=== PATIENT | female | born 1950 | race Caucasian/White ===

== ENCOUNTER 2018-11-11 14:27 | Inpatient (IN) | payer OTHER ==
[~2018-11-11] VITALS: Ht 166.4 cm; Wt 72.2 kg
[2018-11-11 14:34] VITALS: BP_SYST 129
[2018-11-11] MEDS ORDERED: KETOROLAC TROMETHAMINE 30 MG VIAL IVP ONE (15:00)
[2018-11-11] MEDS ORDERED: ONDANSETRON HCL 4 MG/2 ML VIAL IVP ONE (15:00)
[2018-11-11] MEDS ORDERED: INSU200I SQ (15:21)
[2018-11-11] MEDS ORDERED: GLU500 PO (15:21)
[2018-11-11] MEDS ORDERED: VITD2000 PO (15:21)
[2018-11-11] MEDS ORDERED: PRO40 PO (15:21)
[2018-11-11] MEDS ORDERED: INSU200I4 SQ (15:21)
[2018-11-11] MEDS ORDERED: SIMV10TA2 PO (15:21)
[2018-11-11] MEDS ORDERED: ASA81 PO (15:21)
[2018-11-11] MEDS ORDERED: LUTE6TAB PO (15:21)
[2018-11-11] MEDS ORDERED: [UNRECOGNIZED DRUG - CODE] PO (15:21)
[2018-11-11] MEDS ORDERED: ACET-73 PO (15:21)
[2018-11-11] MEDS ORDERED: LEVO125T8 PO (15:21)
[2018-11-11] MEDS ORDERED: [UNRECOGNIZED DRUG - CODE] PO (15:21)
[2018-11-11] MEDS ORDERED: MULT-1117 PO (15:21)
[2018-11-11] MEDS ORDERED: EXEN2PEN SQ (15:21)
[2018-11-11 15:28] LABS: BASOPHILS # (AUTO) 0.1 K/uL (0.0-0.2); BASOPHILS % (AUTO) 0.3 % (0.0-2.0); EOSINOPHILS # (AUTO) 0.1 K/uL (0.0-0.4); EOSINOPHILS % (AUTO) 0.7 % (0.0-4.0); HEMATOCRIT 37.5 % (36-48); HEMOGLOBIN 12.6 g/dL (12.0-16.0); LYMPHOCYTES # (AUTO) 0.6 K/uL (1.0-5.5); MEAN CORPUSCULAR HEMOGLOBIN 31 pg (27-31); MEAN CORPUSCULAR HGB CONC 34 % (32-36); MEAN CORPUSCULAR VOLUME 93 fL (79.0-98.0); MONOCYTES # (AUTO) 1.4 K/uL (0.0-1.0); MONOCYTES % (AUTO) 7.3 % (1.7-9.3); NEUTROPHILS # (AUTO) 16.9 K/uL (1.8-7.7); NEUTROPHILS % (AUTO) 88.7 % (40.0-70.0); PLATELET COUNT (AUTO) 428 K/uL (130-430); RED BLOOD CELL COUNT(AUTO) 4.05 MIL/uL (4.2-6.2)
[2018-11-11 15:37] LABS: CREATININE 1.1 mg/dL (0.55-1.30); POTASSIUM 3.7 mmol/L (3.5-5.1)
[2018-11-11 15:42] LABS: ALBUMIN 3.1 g/dL (3.4-4.8); TOTAL BILIRUBIN 0.7 mg/dL (0.0-1.0)
[2018-11-11 15:44] LABS: INR 1.1 (0.8-1.2); PROTHROMBIN TIME 11.4 SECS (9.5-12.5)
[2018-11-11] MEDS ORDERED: NACL 0.9% 1,000 ML IV ONE ×2 (15:45→17:45)
[2018-11-11] MEDS ORDERED: cefTRIAXone 1 GM IVPB PREMIX 50 ML IV ONE (16:00)
[2018-11-11] MEDS ORDERED: INSULIN REGULAR, HUMAN 10 UNITS/0.1 ML INJ IVP ONE (16:00)
[2018-11-11 16:08] LABS: BILIRUBIN,URINE NEGATIVE (NEGATIVE); BLOOD, URINE 3+ (NEGATIVE); CLARITY/URINE CLOUDY (CLEAR); COLOR,URINE YELLOW (YELLOW); GLUCOSE,URINE 3+ (NEGATIVE); KETONES,URINE 2+ (NEGATIVE); LEUKOCYTE ESTERASE ,URINE TRACE (NEGATIVE); NITRITE, URINE NEGATIVE (NEGATIVE); PH,URINE 5.5 (5.0-8.0); PROTEIN URINE TRACE (NEGATIVE); UROBILINOGEN,URINE 0.2 (0.2-1.0)
[2018-11-11] MEDS ORDERED: IOHEXOL 350 mgI/mL, 150 ML INFUS..BTL IV ONE (16:08)
[2018-11-11 16:28] LABS: BACTERIA,URINE MODERATE /HPF (None Seen); RBC,URINE 20-50 /HPF (0-3); WBC,URINE >100 /HPF (0-3)
[2018-11-11 16:29] LABS: MUCUS,URINE None Seen /LPF (None Seen)
[2018-11-11] MEDS ORDERED: D5W 1,000 ML IV PRN (19:25)
[2018-11-11] MEDS ORDERED: DEXTROSE 50% JECT 50 ML DISP.SYRIN IVP PRN (19:30)
[2018-11-11] MEDS ORDERED: ONDANSETRON HCL 4 MG/2 ML VIAL IVP PRN (19:30)
[2018-11-11] MEDS ORDERED: GLUCOSE 15 GM GEL (in 37.5 GM TUBE) PO PRN (19:30)
[2018-11-11 19:46] VITALS: BP_SYST 142
[2018-11-11] MEDS ORDERED: AZITHROMYCIN 500 MG/VIAL (ZITHROMAX) IV ONE (21:02)
[2018-11-11] MEDS: NACL 0.9% 1,000 ML IV SCH (21:15)
[2018-11-11] MEDS: AZITHROMYCIN 500 MG in NS 250 ML IV SCH (21:19)
[2018-11-11] MEDS: SIMVASTATIN 10 MG TABLET PO SCH (21:24)
[2018-11-11] MEDS: ASPIRIN 81 MG TAB.CHEW PO SCH (21:24)
[2018-11-11] MEDS: MULTIVITAMINS TAB 1 TABLET PO SCH (21:24)
[2018-11-11] MEDS: CHOLECALCIFEROL (VITAMIN D3) 2,000 UNIT TABLET PO SCH (21:25)
[2018-11-11] MEDS: INSULIN REGULAR, HUMAN 100 UNITS/ML, 10 ML VIAL (humuLIN R) SUBCUT PRN (21:34)
[2018-11-12 01:02] VITALS: BP_SYST 106
[2018-11-12] MEDS: ACETAMINOPHEN 325 MG TABLET PO PRN ×2 (05:38→16:25)
[2018-11-12 06:36] LABS: BASOPHILS % (AUTO) 0.2 % (0.0-2.0); EOSINOPHILS # (AUTO) 0.3 K/uL (0.0-0.4); EOSINOPHILS % (AUTO) 2.9 % (0.0-4.0); HEMATOCRIT 29.7 % (36-48); HEMOGLOBIN 10.2 g/dL (12.0-16.0); LYMPHOCYTES # (AUTO) 1.2 K/uL (1.0-5.5); LYMPHOCYTES % (AUTO) 11.3 % (20.5-51.5); MEAN CORPUSCULAR HEMOGLOBIN 32 pg (27-31); MEAN CORPUSCULAR HGB CONC 34 % (32-36); MEAN CORPUSCULAR VOLUME 92 fL (79.0-98.0); MONOCYTES # (AUTO) 1.1 K/uL (0.0-1.0); MONOCYTES % (AUTO) 10.2 % (1.7-9.3); NEUTROPHILS # (AUTO) 8.2 K/uL (1.8-7.7); NEUTROPHILS % (AUTO) 75.4 % (40.0-70.0); PLATELET COUNT (AUTO) 330 K/uL (130-430); RED BLOOD CELL COUNT(AUTO) 3.22 MIL/uL (4.2-6.2); RED CELL DISTRIBUTION WIDTH 13.1 % (9.0-15.0); WHITE BLOOD COUNT (AUTO) 10.9 K/uL (4.8-10.8)
[2018-11-12 06:45] LABS: ALBUMIN 2.3 g/dL (3.4-4.8); CALCIUM 8.2 mg/dL (8.4-11.0); CREATININE 0.8 mg/dL (0.55-1.30); POTASSIUM 3.5 mmol/L (3.5-5.1); TOTAL BILIRUBIN 0.3 mg/dL (0.0-1.0)
[2018-11-12] MEDS: LEVOTHYROXINE SODIUM 0.075 MG TABLET PO SCH (06:53)
[2018-11-12 08:00] VITALS: BP_SYST 105
[2018-11-12] MEDS ORDERED: metFORMIN HCL 500 MG TABLET PO SCH (08:00)
[2018-11-12] MEDS: NACL 0.9% 1,000 ML IV SCH ×2 (08:38→19:16)
[2018-11-12] MEDS: PANTOPRAZOLE SODIUM 40 MG TAB PO SCH (08:38)
[2018-11-12] MEDS: cefTRIAXone 1 GM in D5W 50 ML IV SCH (08:38)
[2018-11-12] MEDS ORDERED: ALBUTEROL SULFATE 0.083% 2.5 MG/3 ML VIAL.NEB INH PRN (09:15)
[2018-11-12 09:38] VITALS: BP_SYST 105
[2018-11-12] MEDS: INSULIN REGULAR, HUMAN 100 UNITS/ML, 10 ML VIAL (humuLIN R) SUBCUT PRN ×3 (12:17→20:47)
[2018-11-12] MEDS ORDERED: METF1000 PO (13:47)
[2018-11-12] MEDS ORDERED: GLU500 PO (13:52)
[2018-11-12] MEDS: AZITHROMYCIN 500 MG in NS 250 ML IV SCH (20:36)
[2018-11-12] MEDS: MULTIVITAMINS TAB 1 TABLET PO SCH (20:39)
[2018-11-12] MEDS: ASPIRIN 81 MG TAB.CHEW PO SCH (20:39)
[2018-11-12] MEDS: SIMVASTATIN 10 MG TABLET PO SCH (20:39)
[2018-11-12] MEDS: CHOLECALCIFEROL (VITAMIN D3) 2,000 UNIT TABLET PO SCH (20:40)
[2018-11-12 20:51] VITALS: BP_SYST 109
[2018-11-13 00:41] VITALS: BP_SYST 103
[2018-11-13 04:59] LABS: ALBUMIN 2.4 g/dL (3.4-4.8); CALCIUM 8.7 mg/dL (8.4-11.0); CREATININE 0.78 mg/dL (0.55-1.30); POTASSIUM 3.7 mmol/L (3.5-5.1); TOTAL BILIRUBIN 0.3 mg/dL (0.0-1.0)
[2018-11-13] MEDS: NACL 0.9% 1,000 ML IV SCH (05:43)
[2018-11-13 06:22] LABS: BASOPHILS % (AUTO) 0.2 % (0.0-2.0); EOSINOPHILS # (AUTO) 0.4 K/uL (0.0-0.4); EOSINOPHILS % (AUTO) 5.1 % (0.0-4.0); HEMOGLOBIN 11.2 g/dL (12.0-16.0); LYMPHOCYTES # (AUTO) 1.6 K/uL (1.0-5.5); LYMPHOCYTES % (AUTO) 21.8 % (20.5-51.5); MEAN CORPUSCULAR HEMOGLOBIN 32 pg (27-31); MEAN CORPUSCULAR HGB CONC 34 % (32-36); MEAN CORPUSCULAR VOLUME 93 fL (79.0-98.0); MONOCYTES # (AUTO) 0.8 K/uL (0.0-1.0); MONOCYTES % (AUTO) 10.4 % (1.7-9.3); NEUTROPHILS # (AUTO) 4.7 K/uL (1.8-7.7); NEUTROPHILS % (AUTO) 62.5 % (40.0-70.0); PLATELET COUNT (AUTO) 376 K/uL (130-430); RED BLOOD CELL COUNT(AUTO) 3.54 MIL/uL (4.2-6.2); WHITE BLOOD COUNT (AUTO) 7.5 K/uL (4.8-10.8)
[2018-11-13] MEDS: LEVOTHYROXINE SODIUM 0.075 MG TABLET PO SCH (06:28)
[2018-11-13] MEDS: INSULIN REGULAR, HUMAN 100 UNITS/ML, 10 ML VIAL (humuLIN R) SUBCUT PRN (06:29)
[2018-11-13 08:00] VITALS: BP_SYST 124
[2018-11-13] MEDS ORDERED: LACTULOSE 20 GM/30 ML UDC PO ONE (08:30)
[2018-11-13] MEDS: cefTRIAXone 1 GM in D5W 50 ML IV SCH (08:31)
[2018-11-13] MEDS: PANTOPRAZOLE SODIUM 40 MG TAB PO SCH (08:31)
[2018-11-13] MEDS ORDERED: LEVO750T45 PO (10:43)
[2018-11-13] MEDS ORDERED: METR500T PO (10:44)
[2018-11-13] MEDS ORDERED: ALBMDI INH (10:46)
[2018-11-13] MEDS ORDERED: LACT1CAP57 PO (10:47)
[2018-11-13 11:00] VITALS: BP_SYST 130
[2018-11-13 11:20] VITALS: BP_SYST 130
== END 2018-11-13 11:25 | disposition home or self-care (01) | DRG 871 ==
LOC: SED 14:27 → STU 19:08 → OBSVTOIN 11-12 07:19 → SMU 11-12 09:36
PROVIDERS: ADMIT Internal Medicine Hospice and Palliative Medicine; ATTEND Internal Medicine Hospice and Palliative Medicine
DX: A41.9 Sepsis, unspecified organism (principal); E11.00 Type 2 diabetes mellitus with hyperosmolarity without nonketotic hyperglycemic-hyperosmolar coma (NKHHC); J18.1 Lobar pneumonia, unspecified organism; N39.0 Urinary tract infection, site not specified; E87.2 Acidosis; E03.9 Hypothyroidism, unspecified; E11.65 Type 2 diabetes mellitus with hyperglycemia; E78.5 Hyperlipidemia, unspecified; R91.1 Solitary pulmonary nodule; I10 Essential (primary) hypertension; J45.909 Unspecified asthma, uncomplicated; M19.90 Unspecified osteoarthritis, unspecified site; Z90.710 Acquired absence of both cervix and uterus; Z88.2 Allergy status to sulfonamides; Z79.82 Long term (current) use of aspirin; Z79.4 Long term (current) use of insulin; Z79.899 Other long term (current) drug therapy
CPT/HCPCS: 36415; 36600; 71045; 71275; 80053; 81000-TC; 82803-TC; 82962; 83605; 84484; 85025; 85610-TC; 85730-TC; 87040-TC; 87086; 87186-TC; 93005; 94640; 94760; 96361; 96365; 96375; 99291; G0378; J0456; J0696; J1815; J1885; J2405; J7030; J7050; J7060; J7613; Q9967

== ENCOUNTER 2019-03-14 04:13 | Inpatient (IN) | payer OTHER ==
[~2019-03-14] VITALS: Ht 166.4 cm; Wt 66.7 kg
[~2019-03-14 04:13] MED LIST: ACET-73 PO; ALBMDI INH; ASA81 PO; EXEN2PEN SQ; GLU500 PO; INSU200I SQ; INSU200I4 SQ; LACT1CAP57 PO; LEVO125T8 PO; LEVO750T45 PO; LUTE6TAB PO; METF1000 PO; METR500T PO; MULT-1117 PO; PRO40 PO; SIMV10TA2 PO; VITD2000 PO; [UNRECOGNIZED DRUG - CODE] PO; [UNRECOGNIZED DRUG - CODE] PO
[2019-03-14 04:15] VITALS: BP_SYST 114
[2019-03-14 05:01] LABS: BILIRUBIN,URINE NEGATIVE (NEGATIVE); BLOOD, URINE 2+ (NEGATIVE); CLARITY/URINE CLEAR (CLEAR); COLOR,URINE YELLOW (YELLOW); GLUCOSE,URINE 3+ (NEGATIVE); KETONES,URINE 1+ (NEGATIVE); LEUKOCYTE ESTERASE ,URINE 1+ (NEGATIVE); NITRITE, URINE NEGATIVE (NEGATIVE); PH,URINE 5.5 (5.0-8.0); PROTEIN URINE 1+ (NEGATIVE); UROBILINOGEN,URINE 0.2 (0.2-1.0)
[2019-03-14 05:08] LABS: BACTERIA,URINE MODERATE /HPF (None Seen); WBC,URINE 20-50 /HPF (0-3)
[2019-03-14] MEDS ORDERED: GLUC100017 PO (05:28)
[2019-03-14] MEDS ORDERED: METH900C PO (05:28)
[2019-03-14 05:29] LABS: BASOPHILS % (AUTO) 0.2 % (0.0-2.0); EOSINOPHILS # (AUTO) 0.5 K/uL (0.0-0.4); EOSINOPHILS % (AUTO) 3.2 % (0.0-4.0); HEMATOCRIT 35.1 % (36-48); HEMOGLOBIN 12.3 g/dL (12.0-16.0); LYMPHOCYTES # (AUTO) 0.4 K/uL (1.0-5.5); LYMPHOCYTES % (AUTO) 2.8 % (20.5-51.5); MEAN CORPUSCULAR HEMOGLOBIN 32 pg (27-31); MEAN CORPUSCULAR HGB CONC 35 % (32-36); MEAN CORPUSCULAR VOLUME 91 fL (79.0-98.0); MONOCYTES # (AUTO) 0.4 K/uL (0.0-1.0); MONOCYTES % (AUTO) 2.9 % (1.7-9.3); NEUTROPHILS # (AUTO) 13.7 K/uL (1.8-7.7); NEUTROPHILS % (AUTO) 90.9 % (40.0-70.0); PLATELET COUNT (AUTO) 390 K/uL (130-430); RED BLOOD CELL COUNT(AUTO) 3.86 MIL/uL (4.2-6.2); RED CELL DISTRIBUTION WIDTH 12.9 % (9.0-15.0); WHITE BLOOD COUNT (AUTO) 15.1 K/uL (4.8-10.8)
[2019-03-14] MEDS ORDERED: NACL 0.9% 1,000 ML IV ONE ×3 (05:31→08:00)
[2019-03-14 05:49] LABS: ALANINE AMINOTRANSFERASE 38 U/L (12-78); ALBUMIN 2.8 g/dL (3.4-4.8); ASPARTATE AMINOTRANSFERASE 37 U/L (10-37); CHLORIDE 96 mmol/L (98-107); CREATININE 1.09 mg/dL (0.55-1.30); SODIUM SERUM 131 mmol/L (136-145); TOTAL BILIRUBIN 0.4 mg/dL (0.0-1.0); UREA NITROGEN, BLOOD 13 mg/dL (8-21)
[2019-03-14 05:55] LABS: ANION GAP 8 (5-15); CALCIUM 9.1 mg/dL (8.4-11.0)
[2019-03-14 05:56] LABS: GLUCOSE 449 mg/dL (70-99)
[2019-03-14] MEDS ORDERED: INSULIN REGULAR, HUMAN 10 UNITS/0.1 ML INJ IVP ONE (06:30)
[2019-03-14] MEDS ORDERED: cefTRIAXone 1 GM IVPB PREMIX 50 ML IV ONE ×2 (07:00→09:53)
[2019-03-14] MEDS ORDERED: ACETAMINOPHEN 325 MG TABLET PO PRN (08:45)
[2019-03-14] MEDS ORDERED: ONDANSETRON HCL 4 MG/2 ML VIAL IVP PRN (08:45)
[2019-03-14] MEDS ORDERED: GLUCOSE 15 GM GEL (in 37.5 GM TUBE) PO PRN (10:30)
[2019-03-14] MEDS ORDERED: D5W 1,000 ML IV PRN (10:30)
[2019-03-14] MEDS ORDERED: DEXTROSE 50%-WATER 50 ML DISP.SYRIN IVP PRN (10:30)
[2019-03-14] MEDS: FAMOTIDINE 20 MG TABLET PO SCH ×2 (10:33→20:22)
[2019-03-14] MEDS: ENOXAPARIN SODIUM 40 MG/0.4 ML SYRINGE SUBCUT SCH (10:35)
[2019-03-14] MEDS: PIPERACILLIN/TAZO 4.5GM/DEX-IS 100 ML IV SCH ×2 (13:41→20:21)
[2019-03-14 13:53] VITALS: BP_SYST 120
[2019-03-14] MEDS: INSULIN REGULAR, HUMAN 100 UNITS/ML, 10 ML VIAL (humuLIN R) SUBCUT PRN ×2 (14:24→18:43)
[2019-03-14 16:00] VITALS: BP_SYST 122
[2019-03-14 16:30] VITALS: BP_SYST 120
[2019-03-14 17:05] VITALS: BP_SYST 122
[2019-03-14] MEDS ORDERED: UMEC1BLS IH (17:13)
[2019-03-14 20:00] VITALS: BP_SYST 110
[2019-03-15] MEDS: PIPERACILLIN/TAZO 4.5GM/DEX-IS 100 ML IV SCH ×3 (05:20→21:13)
[2019-03-15 07:10] LABS: BASOPHILS # (AUTO) 0.1 K/uL (0.0-0.2); BASOPHILS % (AUTO) 1.7 % (0.0-2.0); EOSINOPHILS # (AUTO) 0.5 K/uL (0.0-0.4); EOSINOPHILS % (AUTO) 6.6 % (0.0-4.0); HEMATOCRIT 30.5 % (36-48); HEMOGLOBIN 10.8 g/dL (12.0-16.0); LYMPHOCYTES # (AUTO) 1.4 K/uL (1.0-5.5); LYMPHOCYTES % (AUTO) 19.7 % (20.5-51.5); MEAN CORPUSCULAR HEMOGLOBIN 32 pg (27-31); MEAN CORPUSCULAR HGB CONC 36 % (32-36); MEAN CORPUSCULAR VOLUME 89 fL (79.0-98.0); MONOCYTES # (AUTO) 0.5 K/uL (0.0-1.0); MONOCYTES % (AUTO) 6.6 % (1.7-9.3); NEUTROPHILS # (AUTO) 4.8 K/uL (1.8-7.7); NEUTROPHILS % (AUTO) 65.4 % (40.0-70.0); PLATELET COUNT (AUTO) 341 K/uL (130-430); RED BLOOD CELL COUNT(AUTO) 3.42 MIL/uL (4.2-6.2); RED CELL DISTRIBUTION WIDTH 12.8 % (9.0-15.0); WHITE BLOOD COUNT (AUTO) 7.3 K/uL (4.8-10.8)
[2019-03-15 07:57] LABS: ALANINE AMINOTRANSFERASE 27 U/L (12-78); ALBUMIN 2.2 g/dL (3.4-4.8); ANION GAP 6 (5-15); ASPARTATE AMINOTRANSFERASE 21 U/L (10-37); CALCIUM 8.9 mg/dL (8.4-11.0); CHLORIDE 107 mmol/L (98-107); CREATININE 0.92 mg/dL (0.55-1.30); GLUCOSE 164 mg/dL (70-99); POTASSIUM 3.5 mmol/L (3.5-5.1); SODIUM SERUM 142 mmol/L (136-145); TOTAL BILIRUBIN 0.3 mg/dL (0.0-1.0); UREA NITROGEN, BLOOD 10 mg/dL (8-21)
[2019-03-15 08:00] VITALS: BP_SYST 136
[2019-03-15] MEDS ORDERED: ALBUTEROL SULFATE 0.083% 2.5 MG/3 ML VIAL.NEB INH PRN (08:30)
[2019-03-15] MEDS ORDERED: cefTRIAXone 1 GM in D5W 50 ML IV SCH (09:00)
[2019-03-15] MEDS: LACTOBACILLUS RHAMNOSUS GG 1 CAP CAPSULE PO SCH (09:10)
[2019-03-15] MEDS: FAMOTIDINE 20 MG TABLET PO SCH ×2 (09:11→21:12)
[2019-03-15] MEDS: PANTOPRAZOLE SODIUM 40 MG TAB PO SCH (09:11)
[2019-03-15] MEDS: metFORMIN HCL 500 MG TABLET PO SCH ×2 (09:12→17:17)
[2019-03-15] MEDS: ENOXAPARIN SODIUM 40 MG/0.4 ML SYRINGE SUBCUT SCH (09:13)
[2019-03-15] MEDS ORDERED: IOHEXOL 100 ML IV ONE (09:44)
[2019-03-15] MEDS: IPRATROPIUM/ALBUTEROL SULFATE 3 ML AMPUL.NEB (DUONEB) INH SCH ×2 (11:00→15:30)
[2019-03-15] MEDS: BUDESONIDE 0.5 MG/2 ML AMPUL.NEB INH SCH ×2 (11:00→19:25)
[2019-03-15 11:35] VITALS: BP_SYST 122
[2019-03-15] MEDS: INSULIN REGULAR, HUMAN 100 UNITS/ML, 10 ML VIAL (humuLIN R) SUBCUT PRN ×3 (11:53→21:17)
[2019-03-15 15:49] LABS: BILIRUBIN,URINE NEGATIVE (NEGATIVE); BLOOD, URINE 1+ (NEGATIVE); CLARITY/URINE CLEAR (CLEAR); COLOR,URINE YELLOW (YELLOW); GLUCOSE,URINE 1+ (NEGATIVE); KETONES,URINE 1+ (NEGATIVE); LEUKOCYTE ESTERASE ,URINE 1+ (NEGATIVE); NITRITE, URINE NEGATIVE (NEGATIVE); PH,URINE 5.5 (5.0-8.0); PROTEIN URINE NEGATIVE (NEGATIVE); UROBILINOGEN,URINE 0.2 (0.2-1.0)
[2019-03-15 15:58] VITALS: BP_SYST 121
[2019-03-15 16:13] LABS: BACTERIA,URINE FEW /HPF (None Seen)
[2019-03-15 16:14] LABS: MUCUS,URINE None Seen /LPF (None Seen)
[2019-03-15 20:00] VITALS: BP_SYST 127
[2019-03-15] MEDS: SIMVASTATIN 10 MG TABLET PO SCH (21:12)
[2019-03-15] MEDS: ASPIRIN 81 MG TAB.CHEW PO SCH (21:12)
[2019-03-15] MEDS: MULTIVITAMINS TAB 1 TABLET PO SCH (21:12)
[2019-03-15] MEDS: INSULIN GLARGINE 100 UNITS/ML 10 ML VIAL SUBCUT SCH (21:19)
[2019-03-16] VITALS: BP_SYST 114
[2019-03-16] MEDS: PIPERACILLIN/TAZO 4.5GM/DEX-IS 100 ML IV SCH ×3 (06:36→21:21)
[2019-03-16] MEDS: LEVOTHYROXINE SODIUM 0.125 MG TABLET PO SCH (06:37)
[2019-03-16] MEDS: PANTOPRAZOLE SODIUM 40 MG TAB PO SCH (06:37)
[2019-03-16] MEDS: IPRATROPIUM/ALBUTEROL SULFATE 3 ML AMPUL.NEB (DUONEB) INH SCH ×3 (07:31→20:03)
[2019-03-16] MEDS: BUDESONIDE 0.5 MG/2 ML AMPUL.NEB INH SCH ×2 (07:32→20:03)
[2019-03-16 07:36] LABS: BASOPHILS # (AUTO) 0.1 K/uL (0.0-0.2); BASOPHILS % (AUTO) 0.7 % (0.0-2.0); EOSINOPHILS # (AUTO) 0.7 K/uL (0.0-0.4); EOSINOPHILS % (AUTO) 9.3 % (0.0-4.0); HEMATOCRIT 28.7 % (36-48); HEMOGLOBIN 10.3 g/dL (12.0-16.0); LYMPHOCYTES # (AUTO) 2.2 K/uL (1.0-5.5); LYMPHOCYTES % (AUTO) 27.4 % (20.5-51.5); MEAN CORPUSCULAR HEMOGLOBIN 32 pg (27-31); MEAN CORPUSCULAR HGB CONC 36 % (32-36); MEAN CORPUSCULAR VOLUME 89 fL (79.0-98.0); MONOCYTES # (AUTO) 0.7 K/uL (0.0-1.0); MONOCYTES % (AUTO) 8.5 % (1.7-9.3); NEUTROPHILS # (AUTO) 4.4 K/uL (1.8-7.7); NEUTROPHILS % (AUTO) 54.1 % (40.0-70.0); PLATELET COUNT (AUTO) 386 K/uL (130-430); RED BLOOD CELL COUNT(AUTO) 3.21 MIL/uL (4.2-6.2); RED CELL DISTRIBUTION WIDTH 12.5 % (9.0-15.0)
[2019-03-16 07:44] LABS: ALANINE AMINOTRANSFERASE 28 U/L (12-78); ALBUMIN 2.2 g/dL (3.4-4.8); ANION GAP 5 (5-15); ASPARTATE AMINOTRANSFERASE 22 U/L (10-37); CALCIUM 8.9 mg/dL (8.4-11.0); CHLORIDE 109 mmol/L (98-107); CREATININE 0.83 mg/dL (0.55-1.30); GLUCOSE 115 mg/dL (70-99); SODIUM SERUM 145 mmol/L (136-145); TOTAL BILIRUBIN 0.2 mg/dL (0.0-1.0); UREA NITROGEN, BLOOD 5 mg/dL (8-21)
[2019-03-16 08:00] VITALS: BP_SYST 127
[2019-03-16] MEDS: ENOXAPARIN SODIUM 40 MG/0.4 ML SYRINGE SUBCUT SCH (08:31)
[2019-03-16] MEDS: metFORMIN HCL 500 MG TABLET PO SCH ×2 (08:32→17:23)
[2019-03-16] MEDS: FAMOTIDINE 20 MG TABLET PO SCH ×2 (08:32→21:20)
[2019-03-16] MEDS: LACTOBACILLUS RHAMNOSUS GG 1 CAP CAPSULE PO SCH (08:32)
[2019-03-16 11:39] VITALS: BP_SYST 128
[2019-03-16] MEDS: INSULIN REGULAR, HUMAN 100 UNITS/ML, 10 ML VIAL (humuLIN R) SUBCUT PRN ×3 (12:06→21:28)
[2019-03-16] MEDS: POTASSIUM CHLORIDE 20 MEQ TAB.PRT.SR PO SCH ×2 (12:46→16:16)
[2019-03-16] MEDS: FLUTICASONE PROPIONATE 50 mCg/SPRAY 16 GM NS SCH ×2 (12:47→21:22)
[2019-03-16 15:29] VITALS: BP_SYST 129
[2019-03-16 20:00] VITALS: BP_SYST 140
[2019-03-16] MEDS: ASPIRIN 81 MG TAB.CHEW PO SCH (21:20)
[2019-03-16] MEDS: MULTIVITAMINS TAB 1 TABLET PO SCH (21:20)
[2019-03-16] MEDS: SIMVASTATIN 10 MG TABLET PO SCH (21:21)
[2019-03-16] MEDS: INSULIN GLARGINE 100 UNITS/ML 10 ML VIAL SUBCUT SCH (21:29)
[2019-03-17] MEDS: PANTOPRAZOLE SODIUM 40 MG TAB PO SCH (06:24)
[2019-03-17] MEDS: PIPERACILLIN/TAZO 4.5GM/DEX-IS 100 ML IV SCH (06:24)
[2019-03-17] MEDS: LEVOTHYROXINE SODIUM 0.125 MG TABLET PO SCH (06:24)
[2019-03-17 06:25] LABS: ANION GAP 6 (5-15); CALCIUM 8.8 mg/dL (8.4-11.0); CHLORIDE 107 mmol/L (98-107); GLUCOSE 62 mg/dL (70-99); SODIUM SERUM 141 mmol/L (136-145); UREA NITROGEN, BLOOD 3 mg/dL (8-21)
[2019-03-17] MEDS: BUDESONIDE 0.5 MG/2 ML AMPUL.NEB INH SCH (07:00)
[2019-03-17] MEDS: IPRATROPIUM/ALBUTEROL SULFATE 3 ML AMPUL.NEB (DUONEB) INH SCH (07:34)
[2019-03-17 09:53] VITALS: BP_SYST 141
[2019-03-17] MEDS: metFORMIN HCL 500 MG TABLET PO SCH (09:55)
[2019-03-17] MEDS: FAMOTIDINE 20 MG TABLET PO SCH (09:55)
[2019-03-17] MEDS: LACTOBACILLUS RHAMNOSUS GG 1 CAP CAPSULE PO SCH (09:55)
[2019-03-17] MEDS: ENOXAPARIN SODIUM 40 MG/0.4 ML SYRINGE SUBCUT SCH (09:56)
[2019-03-17] MEDS: FLUTICASONE PROPIONATE 50 mCg/SPRAY 16 GM NS SCH (09:57)
[2019-03-17] MEDS ORDERED: FLUT16SP16 NS (10:01)
[2019-03-17] MEDS ORDERED: POTASSIUM CHLORIDE 20 MEQ TAB.PRT.SR PO ONE (11:00)
[2019-03-17] MEDS: INSULIN REGULAR, HUMAN 100 UNITS/ML, 10 ML VIAL (humuLIN R) SUBCUT PRN (11:19)
[2019-03-17 12:35] VITALS: BP_SYST 145
[2019-03-17 12:56] VITALS: BP_SYST 145
== END 2019-03-17 13:45 | disposition home or self-care (01) | DRG 871 ==
LOC: SED 04:13 → SMU 07:53
PROVIDERS: ADMIT Internal Medicine; ATTEND Internal Medicine
DX: A41.9 Sepsis, unspecified organism (principal); J18.9 Pneumonia, unspecified organism; J44.0 Chronic obstructive pulmonary disease with (acute) lower respiratory infection; N12 Tubulo-interstitial nephritis, not specified as acute or chronic; E44.0 Moderate protein-calorie malnutrition; E03.9 Hypothyroidism, unspecified; E11.65 Type 2 diabetes mellitus with hyperglycemia; E78.5 Hyperlipidemia, unspecified; I10 Essential (primary) hypertension; Z90.710 Acquired absence of both cervix and uterus; Z79.899 Other long term (current) drug therapy; Z88.1 Allergy status to other antibiotic agents
CPT/HCPCS: 36415; 71045; 71260-TC; 80048; 80053; 81000-TC; 82962; 83036; 83605; 83690-TC; 84484; 85025; 85610-TC; 85730-TC; 87040-TC; 87086; 93005; 94010; 94640; 94760; 96361; 96365; 96375; 99285; J0696; J1650; J1815; J2543; J7030; J7613; J7620; J7626; Q9967